=== PATIENT | female | born 1995 | race African-American/Black ===

== ENCOUNTER 2016-11-27 14:28 | Emergency (ER) | payer MEDICAID, OTHER ==
[~2016-11-27] VITALS: Ht 170.2 cm; Wt 80.0 kg
[~2016-11-27 14:28] MED LIST: OXYC-229 PO
[2016-11-27] MEDS ORDERED: METOCLOPRAMIDE 5 MG/ML, 2ML IVPush ONE (15:00)
[2016-11-27] MEDS ORDERED: SODIUM CHLORIDE FLUSH 10ML SYR IVF ONE (15:00)
[2016-11-27] MEDS ORDERED: SODIUM CHLORIDE 0.9% 1,000ML IVBOLUS ONE (15:00)
[2016-11-27] MEDS ORDERED: MECLIZINE CHEWABLE 25 MG TAB PO ONE (15:00)
[2016-11-27] MEDS ORDERED: METOCLOPRAMIDE 5 MG/ML, 2ML ONE (15:31)
[2016-11-27] MEDS ORDERED: MECLIZINE CHEWABLE 25 MG TAB ONE (15:32)
[2016-11-27 16:15] LABS: BLOOD UREA NITROGEN 10 mg/dL (7-18)
[2016-11-27 16:20] LABS: IS PT STATUS REG ER OR PRE ER? YES
[2016-11-27] MEDS ORDERED: POTASSIUM CHLORIDE 20 MEQ PACKET PO ONE (16:30)
[2016-11-27] MEDS ORDERED: LABETALOL 5MG/ML, 20ML ONE (16:41)
[2016-11-27 18:33] VITALS: BP 135/67
== END 2016-11-27 18:58 | disposition home or self-care (01) ==
LOC: ED 18:30
DX: R07.89 Other chest pain (principal); E87.6 Hypokalemia
CPT/HCPCS: 36415; 70450; 71010; 80048; 82040; 84484; 84703; 85025; 85379; 93005; 96374; 99285; J2765; J7030; 99284